=== PATIENT | male | born 1980 | race Caucasian/White ===

== ENCOUNTER 2019-01-16 14:53 | Emergency (ER) | payer SELFPAY ==
[~2019-01-16] VITALS: Ht 170.2 cm; Wt 82.7 kg
[2019-01-16 15:01] VITALS: BP 144/82; PULSE 96; RESP 19; Ht 170.2 cm; Wt 82.7 kg
[2019-01-16] MEDS ORDERED: KETOROLAC 60 MG INJ IM STA (17:00)
[2019-01-16] MEDS ORDERED: HYDROCODONE/APAP (5/325) TAB PO ONE (17:00)
[2019-01-16] MEDS ORDERED: TRAM50TA2 PO (17:08)
[2019-01-16] MEDS ORDERED: IBUP-1542 PO (17:08)
[2019-01-16] MEDS ORDERED: PRED20TA PO (17:08)
--- NOTE | 2019-01-16 17:10 | ERD ---
ER Documentation Chief Complaint Chief Complaint lower back pain radiating down right leg x 1 day HPI 38-year-old male presents with low back pain rating to the right leg for the last 2 days. He has a history of sciatica. He has had MRIs in pain was improved until recently. Denies any fall. Denies any bowel bladder incontinence, fevers, weakness. ROS All systems reviewed and are negative except as per history of present illness. Medications Home Meds Active Scripts Prednisone* (Prednisone*) 20 Mg Tab, 40 MG PO DAILY for 4 Days, TAB Prov:ZHOU SOMMER MD 01/16/19 Ibuprofen* (Motrin*) 600 Mg Tab, 600 MG PO Q6, #30 TAB Prov:ZHOU SOMMER MD 01/16/19 Tramadol HCl (Tramadol HCl) 50 Mg Tablet, 50 MG PO Q4 PRN for PAIN, #20 TAB Prov:ZHOU SOMMER MD 01/16/19 PMhx/Soc Medical and Surgical Hx: pt denies Medical Hx, pt denies Surgical Hx Hx Alcohol Use: Yes Hx Substance Use: No Hx Tobacco Use: Yes Smoking Status: Current every day smoker FmHx Family History: No diabetes, No coronary disease, No other Physical Exam Vitals Vital Signs Date Temp Pulse Resp B/P (MAP) Pulse Ox O2 O2 Flow FiO2 Time Delivery Rate 01/16/19 100.6 96 19 144/82 98 15:01 (102) Physical Exam Const: No acute distress Head: Atraumatic Eyes: Normal Conjunctiva ENT: Normal External Ears, Nose and Mouth. Neck: Full range of motion. No meningismus. Resp: Clear to auscultation bilaterally Cardio: Regular rate and rhythm, no murmurs Abd: Soft, non tender, non distended. Normal bowel sounds Skin: No petechiae or rashes Back: No midline or flank tenderness. Tenderness right L4-5 area with positive straight leg raise. Ext: No cyanosis, or edema Neur: Awake and alert with no appreciable focal neurologic deficits. Psych: Normal Mood and Affect Results 24 hrs Current Medications Medications Dose Sig/Hemant Start Time Status Last (Trade) Ordered Route PRN Stop Time Admin Dose Reason Admin Ketorolac 60 mg ONCE STAT 01/16/19 DC Tromethamine IM 17:00 (Toradol) 01/16/19 17:01 1 tab ONCE ONCE 01/16/19 DC Acetaminophen PO 17:00 / 01/16/19 17:01 Hydrocodone Bitart (Elrod (5/325)) Procedures/MDM Patient presents with signs and symptoms of sciatica. Patient has a low-grade temperature triage but also has URI and doubt epidural abscess, cauda equina syndrome, infectious cause of low back pain. He has no flank pain or abdominal pain. We treated with Toradol, 60 mg IM, Elrod and will be treated with tramadol, ibuprofen, short course prednisone, instructions for exercises and return precautions and primary care follow-up. The patient was stable with no new complaints during the ER course. Clinically, there is no current evidence to suggest meningitis, sepsis, acute abdomen, pneumonia, stroke, acute coronary syndrome, pulmonary embolism, aortic dissection or any other emergent condition appearing to require further evaluation or hospitalization. Patient counseled regarding my diagnostic impression and care plan. Prior to discharge all qu estions answered. Pt agrees with treatment plan and understands strict return precautions. Pt is instructed to follow up with primary care provider within 24- 48 hours. Precautionary instructions provided including instructions to return to the ER if not improving or for any worsening or changing symptoms or concerns. Departure Diagnosis: Primary Impression: Sciatic leg pain Additional Impression: Back pain Back pain location: low back pain Chronicity: acute Back pain laterality: right Sciatica presence: with sciatica Sciatica laterality: sciatica of right side Qualified Codes: M54.41 - Lumbago with sciatica, right side Condition: Stable Patient Instructions: Back Exercises, Lumbar, Back Pain W/ Sciatica Additional Instructions: Cheque otro vez con samuels doctor primario en el proximo [place] or regresa para mas o nueva simptomas- FIEBRE, MAS SIMPTOMAS. ZHOU SOMMER MD Jan 16, 2019 17:10
== END 2019-01-16 17:32 | disposition home or self-care (01) ==
LOC: FTE 14:53
DX: M54.41 Lumbago with sciatica, right side (principal); F17.210 Nicotine dependence, cigarettes, uncomplicated
CPT/HCPCS: 96372; 99284; J1885